=== PATIENT | female | born 2000 | race Hispanic/Latino ===

== ENCOUNTER 2022-12-21 15:57 | Emergency (ER) | payer MEDICAID ==
[~2022-12-21] VITALS: Ht 172.7 cm; Wt 59.9 kg
[2022-12-21 17:24] LABS: BASOPHILS # (AUTO) 0.04 K/uL (0.00-0.20); BASOPHILS % (AUTO) 0.4 % (0.0-5.0); EOSINOPHILS # (AUTO) 0.16 K/uL (0.00-0.70); EOSINOPHILS % (AUTO) 1.6 % (0.0-8.0); IMMATURE GRANULOCYTE ABSOLUTE 0.03 K/uL (0-1); LYMPHOCYTES # (AUTO) 3.3 K/uL (1.0-4.8); LYMPHOCYTES % (AUTO) 31.9 % (21.0-51.0); MEAN CORPUSCULAR HEMOGLOBIN 29.5 pg (27.0-33.0); MEAN CORPUSCULAR HGB CONC 34.2 g/dL (32.0-36.0); MEAN CORPUSCULAR VOLUME 86.4 fL (80-100); MONOCYTES # (AUTO) 0.6 K/uL (0.1-1.0); MONOCYTES % (AUTO) 5.6 % (3.0-13.0); NEUTROPHILS # (AUTO) 6.2 K/uL (1.8-7.7); NEUTROPHILS % (AUTO) 60.2 % (40.0-77.0); PLATELET COUNT (AUTO) 180 K/uL (130-400); WHITE BLOOD COUNT (AUTO) 10.2 K/uL (4.8-10.8)
[2022-12-21 17:31] LABS: CREATININE 0.5 mg/dL (0.5-1.5); POTASSIUM 3.8 mmol/L (3.5-5.1)
[2022-12-21 18:09] LABS: ALBUMIN 3.5 g/dL (3.5-5.0); BILIRUBIN,TOTAL 0.2 mg/dL (0.2-1.0)
[2022-12-21] MEDS ORDERED: ACETAMINOPHEN 500 MG TABLET PO ONE (20:30)
[2022-12-21 20:31] LABS: APPEARANCE,URINE CLEAR (CLEAR); BILIRUBIN,URINE NEGATIVE (NEGATIVE); COLOR,URINE LIGHT-YELLOW (YELLOW); GLUCOSE, URINE (UA) NEGATIVE (NEGATIVE); KETONES,URINE NEGATIVE (NEGATIVE); LEUKOCYTE ESTERASE ,URINE 75 Leu/uL (NEGATIVE); NITRATE,URINE NEGATIVE (NEGATIVE); OCCULT BLOOD,URINE NEGATIVE (NEGATIVE); PROTEIN,URINE 20 mg/dL (NEGATIVE); UROBILINOGEN,URINE 0.2 mg/dL (0.2-1.0)
[2022-12-21 20:32] LABS: ADD UA MICROSCOPIC YES
[2022-12-21 20:35] LABS: BACTERIA,URINE RARE /HPF (None Seen); SQUAMOUS EPITHELIAL CELL,UR MOD /HPF (0-2)
[2022-12-21] MEDS ORDERED: CEPH500B PO (21:38)
[2022-12-21] MEDS ORDERED: CEPHALEXIN 250 MG CAPSULE PO SCH (22:00)
[2022-12-21 22:15] VITALS: BP 111/61; PULSE 89; RESP 16; O2SAT 98
== END 2022-12-21 22:15 | disposition home or self-care (01) ==
LOC: EDH 15:57
DX: O23.41 Unspecified infection of urinary tract in pregnancy, first trimester (principal); N39.0 Urinary tract infection, site not specified; F17.200 Nicotine dependence, unspecified, uncomplicated; Z3A.01 Less than 8 weeks gestation of pregnancy
CPT/HCPCS: 36415; 76801; 80053; 81001; 84702; 85025; 87088

== ENCOUNTER 2023-04-18 13:12 | Observation (INO) | payer MEDICAID ==
[~2023-04-18] VITALS: Ht 172.7 cm; Wt 69.9 kg
[~2023-04-18 13:12] MED LIST: CEPH500B PO
[2023-04-18 13:27] VITALS: BP 108/68; PULSE 109; RESP 20
[2023-04-18 14:08] LABS: AMPHET/METH SCREEN,URINE NEGATIVE (NEGATIVE); BARBITURATE SCREEN, URINE NEGATIVE (NEGATIVE); BENZODIAZEPINES SCREEN,URINE NEGATIVE (NEGATIVE); CANNABINOID SCREEN,URINE NEGATIVE (NEGATIVE); COCAINE SCREEN,URINE NEGATIVE (NEGATIVE); OPIATE SCREEN,URINE NEGATIVE (NEGATIVE); PHENCYCLIDINE SCREEN,URINE NEGATIVE (NEGATIVE)
[2023-04-18 14:15] LABS: APPEARANCE,URINE CLEAR (CLEAR); BILIRUBIN,URINE NEGATIVE (NEGATIVE); COLOR,URINE LIGHT-YELLOW (YELLOW); GLUCOSE, URINE (UA) NEGATIVE (NEGATIVE); KETONES,URINE NEGATIVE (NEGATIVE); LEUKOCYTE ESTERASE ,URINE NEGATIVE Leu/uL (NEGATIVE); NITRATE,URINE NEGATIVE (NEGATIVE); OCCULT BLOOD,URINE NEGATIVE (NEGATIVE); PH,URINE 6.5 (5.0-8.0); PROTEIN,URINE NEGATIVE (NEGATIVE); UROBILINOGEN,URINE 0.2 mg/dL (0.2-1.0)
[2023-04-18 14:24] LABS: ADD UA MICROSCOPIC NO
== END 2023-04-18 15:25 | disposition home or self-care (01) ==
LOC: EDH 13:12 → LDH 13:13
PROVIDERS: ADMIT Obstetrics & Gynecology; ATTEND Obstetrics & Gynecology
DX: O26.893 Other specified pregnancy related conditions, third trimester (principal); K59.00 Constipation, unspecified; R10.9 Unspecified abdominal pain; Z3A.33 33 weeks gestation of pregnancy; Z79.899 Other long term (current) drug therapy
CPT/HCPCS: 80305; 81003; G0378 ×2

== ENCOUNTER 2024-03-30 17:57 | Emergency (ER) | payer MEDICAID ==
[~2024-03-30] VITALS: Ht 167.6 cm; Wt 77.1 kg
[2024-03-30 18:05] VITALS: BP 117/74; PULSE 90; RESP 16; TEMP 97.5; O2SAT 98
--- NOTE | 2024-03-30 18:28 | ERN ---
ED Note History of Present Illness Stated Complaint: FLU Chief Complaint: Congestion Time Seen by MD: 17:57 Time Seen by Midlevel: 17:57 Dictation: The patient is a 23-year-old female with past medical history of who presents to the emergency department with complaints of cough, nasal congestion for three days. Patient reports also occasional shortness of breath. Denies any fevers. Reports patient has been at home with the same symptoms. Allergies: Coded Allergies: No Known Allergies (Unverified Allergy, Unknown, 12/21/22) Home Meds Active Scripts Azithromycin (Zithromax) 250 Mg Tablet, 250 MG PO AD for 5 Days, #6 TAB Take 2 250 mg tablets on day 1, then take 1 250mg tablets daily for 4 days Prov:KINZA VELAZQUEZ 03/30/24 Methylprednisolone (Medrol) 4 Mg Tab.ds.pk, 4 MG PO AD for 6 Days, #1 PACK Day 1: Take 2 tablets before breakfast,1 tablet after lunch and supper, and 2 tablets at bedtime. Day 2: Take1 tablet before breakfast,1 tablet after lunch,1 tablet after supper, and 2 tablets at bedtime. Day 3: Take 1 tablet before breakfast, 1 tablet after lunch, 1 tablet after supper, and 1 tablet at bedtime. Day 4: Take 1 tablet before breakfast, 1 tablet after lunch, and 1 tablet at bedtime. Day 5: Take1 tablet before breakfast and 1 tablet at bedtime. Day 6: Take 1 tablet before breakfast. Prov:KINZA VELAZQUEZ 03/30/24 Albuterol Sulfate (Ventolin Hfa/Proventil Hfa/Proair Hfa) 90 Mcg Puff, 1-2 PUFF IH Q4H PRN for SHORTNESS OF BREATH for 5 Days, #1 INH 0 Refills PHARMACY TO DISPENSE 1 INHALER FOR USE Prov:VELAZQUEZKINZA ALEMAN 03/30/24 Cephalexin Monohydrate (Keflex) 500 Mg Cap, 500 MG PO BID for 7 Days, #14 CAP Prov:STEFFI LEDESMA Sr., MD 12/21/22 Past Medical History Past Medical History: No Pertinent History Surgical History: Social History: Smokers LMP: Feb 13, 2025 : 2 Para: 1 Aborts: 0 RN Note Reviewed/Agreed w/PFSH: Yes Review of System Dictation Constitutional: Negative for fever,chills, and weight loss Eyes: Negative for injury, pain,redness, and discharge ENT: Negative for injury,pain or swelling positive for nasal congestion Cardiovascular: Negative for chest pain, palpitations, and edema Respiratory: Negative for and wheezing, positive for cough, shortness of Abdomen/GI: Negative for abdominal pain, nausea, vomiting, diarrhea, and constipation Back: Negative for injury and pain : Negative for injury, bleeding and discharge MS/Extremity: Negative for injury and deformity Skin: Negative for rash, and discoloration Neuro: Negative for headache, weakness, numbness, tingling, and seizure Psych: Negative for suicide ideation, homicidal ideation, and hallucinations Initial Vital Sign VS Vital Signs Date Time Temp Pulse Resp B/P (MAP) Pulse Ox O2 Delivery O2 Flow Rate FiO2 03/30/24 18:05 97.5 90 16 117/74 98 Room Air 0 03/30/24 18:05 21 Physical Exam Dictation Vital Signs reviewed General Appearance: Alert, oriented x 3, no acute distress, well developed, nourished. Head and Face: non-traumatic. Eyes: PERRL, pink conjunctivas, eyelid no trauma, anterior chamber with arcus senilis. Ears: Pinnas intact and no signs of trauma or erythema ear canals clear and no discharge TM no erythema Nose: No discharge, no bleeding. Oropharynx: Mouth normal, tongue pink. pharynx clear,no erythema, tonsils no exudates, no abscesses noted, mucous membrane moist Neck: Supple, non-tender, no thyromegaly, no masses, no JVD, no bruits Breast:Deferred Chest:No tenderness, no crepitus, no paradoxical movement, no retractions Lungs:Clear, well-ventilated, symmetric, no rales, mild wheezing, no rhonchi, no stridor, good breath sounds bilaterally Heart: Regular rate, regular rhythm, no murmur, no gallops Vascular: no peripheral edema, Abdomen: Soft, positive bowel sounds, nondistended, no guarding, nontender, no rebound, no masses no hepatomegaly, no splenomegaly, no Su's sign, no hernias. Rectal: Deferred Genital: Deferred Neurological: Normal speech, motor function intact, sensory function intact Musculoskeletal: Neck nontender, full range of motion, back nontender, full range of motion, Extremities: nontender, full range of motion Skin: Color pink, dry, no turgor, no rash, no lacerations, no abrasions, no contusions. Lymphatic: Deferred Results (Laboratory/Radiology) Laboratory/Radiology Laboratory Tests Test 03/30/24 18:09 03/30/24 19:50 Influenza Type A Antigen Negative For Type A Influenza Type B Antigen Negative For Type B SARS-CoV-2 Antigen (Rapid) PRESUMPTIVE NEGATIVE Urine HCG, Qualitative NEGATIVE (NEGATIVE) REASON: cough ORDERING PHYSICIAN: KINZA VELAZQUEZ [employer]EL[employer]NAGER PROCEDURE: CXR1VW - CHEST 1VW CHEST 1VW HISTORY: Cough COMPARISON: None FINDINGS: A frontal projection of the chest was obtained. Bilateral pulmonary infiltrates are seen. The heart is normal in size. No evidence of aortic calcification is seen. IMPRESSION: 1. Bilateral pulmonary infiltrates are seen. Labs Reviewed?: Yes ED Course ED Course Orders Procedure Category Date Status Time ,Urine Test LAB 03/30/24 Complete 18:23 Chest 1vw RAD 03/30/24 Resulted 18:23 Influenza Type A & B, LAB 03/30/24 Complete Rapid 18:23 Covid19 (Sars Antigen LAB 03/30/24 Complete Rapid) 18:23 Acetaminophen 500mg PHA 03/30/24 Complete Tab (Tylenol 500mg T 18:30 Albuterol 0.083% PHA 03/30/24 Complete 2.5mg/3ml (Proventil 18:30 Ceftriaxone 1g Vial PHA 03/30/24 In Process (Rocephine 1g Inj) 20:30 Methylprednisolone PHA 03/30/24 In Process Succ 125mg (Solu-Medr 20:30 Azithromycin PHA 03/30/24 Verified (Zithromax) 20:30 Current Medications Medications (Trade) Dose Ordered Sig/Rosanna Route PRN Reason Start Time Stop Time Status Last Admin Dose Admin Acetaminophen (TYLenol 500MG TAB) 1,000 mg ONCE ONCE PO 03/30/24 18:30 03/30/24 18:31 DC 03/30/24 19:37 Albuterol Sulfate (Proventil 0.083% 2.5mg/3ml) 2.5MG ONCE ONCE IH 03/30/24 18:30 03/30/24 18:31 DC 03/30/24 18:36 Ceftriaxone Sodium (ROCEphine 1G INJ) 1 gm ONCE ONCE IVPB 03/30/24 20:30 03/30/24 20:31 Methylprednisolone Sodium Succinate (Solu-medROL 125MG) 125 mg ONCE ONCE IVP 03/30/24 20:30 03/30/24 20:31 Vital Signs Date Time Temp Pulse Resp B/P (MAP) Pulse Ox O2 Delivery O2 Flow Rate FiO2 03/30/24 18:05 97.5 90 16 117/74 98 Room Air* 0 21 03/30/24 18:05 97.5 90 16 117/74 98 Room Air 0 Medical Decision Making MDM The patient is a 23-year-old female with past medical history of who presents to the emergency department with complaints of cough, nasal congestion for three days. Patient reports also occasional shortness of breath. Denies any fevers. Reports patient has been at home with the same symptoms. Serology negative. Chest x-ray showed pulmonary infiltrates. Patient received an albuterol treatment and antibiotics in ER. Will be discharged on antibiotics. Patient continues in no acute distress, nonlabored respiration. O2 saturation 98% on room air. Differential diagnosis: URI, pneumonia, pneumothorax, COVID-19 infection Need for hospitalization: Patient does not meet criteria for hospitalization. There are no social concerns with this patient. DX & DISP Disposition: Discharge Departure Impression: Primary Impression: Pneumonia Additional Impression: Cough Condition: Stable Scripts Azithromycin (Zithromax) 250 Mg Tablet 250 MG PO AD for 5 Days, #6 TAB Take 2 250 mg tablets on day 1, then take 1 250mg tablets daily for 4 days Prov: KINZA VELAZQUEZ 03/30/24 Methylprednisolone (Medrol) 4 Mg Tab.ds.pk 4 MG PO AD for 6 Days, #1 PACK Day 1: Take 2 tablets before breakfast,1 tablet after lunch and supper, and 2 tablets at bedtime. Day 2: Take1 tablet before breakfast,1 tablet after lunch,1 tablet after supper, and 2 tablets at bedtime. Day 3: Take 1 tablet before breakfast, 1 tablet after lunch, 1 tablet after supper, and 1 tablet at bedtime. Day 4: Take 1 tablet before breakfast, 1 tablet after lunch, and 1 tablet at bedtime. Day 5: Take1 tablet before breakfast and 1 tablet at bedtime. Day 6: Take 1 tablet before breakfast. Prov: KINZA VELAZQUEZ [employer]EL[employer] MANAGER 03/30/24 Albuterol Sulfate (Ventolin Hfa/Proventil Hfa/Proair Hfa) 90 Mcg Puff 1-2 PUFF IH Q4H PRN for SHORTNESS OF BREATH for 5 Days, #1 INH 0 Refills PHARMACY TO DISPENSE 1 INHALER FOR USE Prov: KINZA VELAZQUEZ 03/30/24 Additional Instructions: Please follow up with your primary doctor in 1-2 days. Take medications as prescribed. If symptoms worsen please return to ER. FOLLOW-UP WITH PRIMARY CARE PROVIDER IN 1 TO 2 DAYS. TAKE MEDICATIONS DIRECTED HERE IN THE EMERGENCY ROOM. OKAY TO CONTINUE HOME MEDICATIONS UNLESS OTHERWISE DISCUSSED DURING YOUR VISIT IN THE EMERGENCY ROOM TODAY. RETURN TO YOUR NEAREST EMERGENCY ROOM IF SYMPTOMS WORSEN OR IF THERE IS NO IMPROVEMENT. CALL 911 IF YOU NEED IMMEDIATE ASSISTANCE. TAKE TYLENOL OR MOTRIN [id number] NEEDED AND IF NO CONTRAINDICATIONS ARE PRESENT. INCREASE ORAL HYDRATION. A WOUND CULTURE OR URINE CULTURE WAS ORDERED HERE IN THE EMERGENCY ROOM DEPARTMENT PLEASE FOLLOW-UP WITH PRIMARY CARE PROVIDER AND ADVISE THEM TO GET REPEAT PORTS FROM OUR FACILITY. IF YOU HAD ANY LETY WRAP/SPLINTS THAT WERE APPLIED HERE, PLEASE DO NOT REMOVE THEM UNTIL YOU SEE YOUR PRIMARY CARE OR SPECIALTY. Referrals: DUYEN ESPINOZA MD (PCP) Time of Disposition: 20:10 I have reviewed the case, and I agree with, Diagnosis and Plan KINZA VELAZQUEZ Mar 30, 2024 18:28
[2024-03-30] MEDS: ALBUTEROL 0.083% 2.5 MG/3 ML INH IH ONE (18:36)
[2024-03-30 18:54] LABS: COVID19 (SARS ANTIGEN RAPID) PRESUMPTIVE NEGATIVE (NEGATIVE); INFLUENZA TYPE A Negative For Type A (NEGATIVE); INFLUENZA TYPE B Negative For Type B (NEGATIVE)
--- NOTE | 2024-03-30 19:32 | HMCIMG ---
CHEST 1VW HISTORY: Cough COMPARISON: None FINDINGS: A frontal projection of the chest was obtained. Bilateral pulmonary infiltrates are seen. The heart is normal in size. No evidence of aortic calcification is seen. IMPRESSION: 1. Bilateral pulmonary infiltrates are seen.
[2024-03-30] MEDS: acetaMINOPHEN 500 MG TABLET PO ONE (19:37)
[2024-03-30] MEDS ORDERED: METH4TAB3 PO (20:06)
[2024-03-30] MEDS ORDERED: ALBUHFA IH (20:06)
[2024-03-30] MEDS ORDERED: AZIT250T PO (20:06)
[2024-03-30] MEDS: Solu-medROL 125MG VIAL IVP ONE (20:39)
[2024-03-30] MEDS: AZITHROMYCIN 250 MG TABLET PO ONE (20:39)
[2024-03-30] MEDS: cefTRIAXone 1G VIAL IVPB ONE (20:39)
== END 2024-03-30 20:56 | disposition home or self-care (01) ==
LOC: EDH 17:57
DX: J18.9 Pneumonia, unspecified organism (principal); F17.200 Nicotine dependence, unspecified, uncomplicated; Z20.822 Contact with and (suspected) exposure to COVID-19; Z79.899 Other long term (current) drug therapy; Z98.890 Other specified postprocedural states
CPT/HCPCS: 99284; 96374; 71045; 96375; 87426; 87804 ×2; 81025; J2919; J0696